=== PATIENT | male | born 1985 | race Hispanic/Latino ===

== ENCOUNTER 2024-09-28 04:43 | Emergency (ER) | payer BC ==
[~2024-09-28] VITALS: Ht 175.3 cm; Wt 88.5 kg
--- NOTE | 2024-09-28 04:57 | ERN ---
General Chief Complaint: Abdominal Pain Stated Complaint: C/O LLQ PAIN RADIATING TO BACK WITH NAUSEA Time Seen by MD: 04:46 Source: patient History of Present Illness Initial Comments Patient is a 39-year-old male coming in to be evaluated for lower abdominal pain. Patient states that he does have a history of diverticulitis in believes that this is a flare-up. Patient states that the pain began on Wednesday the pain is localized to the lower left quadrant area. No fever no chills no nausea no vomiting Allergies: Coded Allergies: No Known Allergies (Unverified Allergy, Unknown, 09/28/24) Past Medical History Past Medical History: Diverticulosis Past Surgical History: Other Surgical History Other: ANAL FISTULA ROS Dictation CONSTITUTIONAL: No chills, no fever, no weakness, no diaphoresis, no malaise. HEAD/FACE: No signs of trauma. EENT: No eye pain, no blurred vision, no tearing, no double vision, no ear pain, no ear discharge, no nose pain, no nasal congestion, no throat pain, no throat swelling, no mouth pain. RESPIRATORY: No cough, no orthopnea, no SOB, no stridor, no wheezing. CARDIOVASCULAR: No chest pain, no edema, no palpitations, no syncope. GASTROINTESTINAL/ABDOMINAL: abdominal pain, no constipation, no diarrhea, no nausea, no vomiting. GENITOURINARY: No abnormal discharge, no dysuria, no frequent urination, no hematuria. No complaints of pain in the genitals. MUSCULOSKELETAL: No back pain, no gout, no joint pain, no joint swelling, no muscle pain, no muscle stiffness, no neck pain. INTEGUMENTARY: No change in color, no change in hair/nails, no dryness, no lesion, no lumps, no rash. NEUROLOGICAL/PSYCH: No anxiety, not depressed, no emotional problem, no headache, no numbness, no pre-existing deficit, no history of seizures, no tremors, no weakness. HEMATOLOGIC/LYMPHATIC: Not anemic, no history of blood clots, no apparent bleeding, no bruising, glands not swollen. All Systems Negative, Except as Noted. Physical Exam Physical Exam Dictation VITAL SIGNS: Reviewed. GENERAL APPEARANCE: Alert, oriented x3, no acute distress, obese. HEAD AND FACE: Non-traumatic. EYES: PERRL, pink conjunctivas, eyelid no trauma, anterior chamber clear. EARS: Pinnas intact and no signs of trauma or erythema. Ear canals clear and no discharge. TMs no erythema. NOSE: No discharge, no bleeding. OROPHARYNX: Mouth normal, teeth no caries, tongue pink. Pharynx clear, no erythema. Tonsils no exudates, no abscesses noted. Mucous membrane moist. NECK: Supple, non-tender, no thyromegaly, no masses, no JVD, no bruits. BREAST: Deferred. CHEST: No tenderness, no crepitus, no paradoxical movement, no retractions. LUNGS: Clear, well-ventilated, symmetric, no rales, no wheezing, no rhonchi, no stridor, good breath sounds bilaterally. HEART: Regular rate, regular rhythm, no murmur, no gallops. VASCULAR: No peripheral edema. ABDOMEN: Soft, positive bowel sounds, nondistended, no guarding, left lower abdominal tenderness on palpation, no rebound, no masses no hepatomegaly, no splenomegaly, no Hearn's sign, no hernias. RECTAL: Deferred. GENITAL: Deferred. NEUROLOGICAL: Normal speech, gross motor function intact, gross sensory function intact. MUSCULOSKELETAL: Neck nontender, full range of motion, back nontender, full range of motion. EXTREMITIES: Nontender, full range of motion. SKIN: Color pink, dry, no turgor, no rash, no lacerations, no abrasions, no contusions. LYMPHATICS: Deferred. Results Laboratory and Microbiology Lab and Micro Result Laboratory Tests Test 09/28/24 05:50 White Blood Count 13.6 K/uL (4.8-10.8) H Red Blood Count 4.84 MIL/uL (4.50-6.20) Hemoglobin 14.2 g/dL (14.0-18.0) Hematocrit 41.9 % (42-54) L Mean Corpuscular Volume 86.6 fL (79-99) Mean Corpuscular Hemoglobin 29.3 pg (27.0-33.0) Mean Corpuscular Hemoglobin Concent 33.9 g/dL (32.0-36.0) Red Cell Distribution Width 12.4 % (11.0-15.5) Platelet Count 339 K/uL (130-400) Mean Platelet Volume 9.1 fL (7.5-10.5) Immature Granulocyte % (Auto) 0.4 % (0-1) Neutrophils (%) (Auto) 84.5 % (40.0-77.0) H Lymphocytes (%) (Auto) 6.9 % (21.0-51.0) L Monocytes (%) (Auto) 6.5 % (3.0-13.0) Eosinophils (%) (Auto) 1.5 % (0.0-8.0) Basophils (%) (Auto) 0.2 % (0.0-5.0) Neutrophils # (Auto) 11.5 K/uL (1.8-7.7) H Lymphocytes # (Auto) 0.9 K/uL (1.0-4.8) L Monocytes # (Auto) 0.9 K/uL (0.1-1.0) Eosinophils # (Auto) 0.21 K/uL (0.00-0.70) Basophils # (Auto) 0.03 K/uL (0.00-0.20) Absolute Immature Granulocyte (auto 0.05 K/uL (0-1) Nucleated Red Blood Cells 0.0 % (0.0-0.19) White Cell Morphology Comment See comments Sodium Level 137 mmol/L (136-145) Potassium Level 3.9 mmol/L (3.5-5.1) Chloride Level 101 mmol/L (101-111) Carbon Dioxide Level 30 mmol/L (21-32) Blood Urea Nitrogen 7 mg/dL (7-18) Creatinine 0.9 mg/dL (0.5-1.3) Glomerular Filtration Rate Calc 111 mL/min (>90) Random Glucose 96 mg/dL (70-105) Total Calcium 8.6 mg/dL (8.5-10.1) MDM MDM: Differential diagnosis: Rationale: Tests considered and ordered secondary to shared decision making include: Previous outside records reviewed: Old ER visits. Risk of complication and/or morbidity or mortality of patient management: None Medications-Per medication reconciliation Need for hospitalization: Patient does not meet criteria for hospitalization. Need for emergency major/minor surgery: No There are no social concerns with this patient. Prescription drug management Prescriptions will include symptomatic care Patient's prior external medical records from other ER visits were reviewed by me as indicated. Prior testing and results from previous visits were reviewed. Prior tests were taken into account with medical decision making and resource utilization, independent historian/historians were used to obtain complete medical history. I independently interpreted the test that were performed, results were reviewed by me and considered findings on radiology if ordered. Medical management and examination interpretation discussions were had by me with other qualified healthcare professionals as indicated for the patient's care. DR HERNANDEZ: I took over care at 0700 CC: Left lower abdominal pain Historian: Patient Comorbidities: History of diverticulitis Differential diagnosis: Diverticulitis, perforation, abscess, sepsis, other. Vital signs: Afebrile, stable in the ER. No tachycardia. Does not meet SIRS criteria. Labs: Leukocytosis 13.6 k with left shift. No bands. Chemistries unremarkable. CT scan of the abdomen and pelvis with contrast per my independent interpretation shows inflammation left lower quadrant consistent with diverticulitis. No signs of perforation or abscess or complication. Patient received IV Zosyn, two doses of IV morphine, and IV ondansetron in the ER. On re-evaluation of the patient reports he still has a little bit of discomfort but overall he appears well. I considered admission for this patient for IV antibiotics and further treatment and evaluation, but the patient prefers to go home at this time. He reports that he has had this before and it has responded well to oral antibiotics and pain control and diet modification. We agreed to discharge at this time with Augmentin and Percocet tabs for significant pain. He will return to the emergency department in 24-48 hours if his symptoms do not improve or if he has worsening condition. Patient is agreeable plan. ED Course Orders Procedure Category Date Status Time Cbc With Differential LAB 09/28/24 Complete 04:54 Urinalysis Profile LAB 09/28/24 In Process 04:54 Ct Abdomen/Pelvis W/O CT 09/28/24 Taken Contrast 04:54 Basic Metabolic Panel LAB 09/28/24 Complete 04:54 Morphine 2mg Syg PHA 09/28/24 Complete (Morphine 2mg Syg) 06:30 Ondansetron 4mg Inj PHA 09/28/24 Complete (Zofran 4mg Inj) 06:30 Zosyn 3.375gm+Ns 50ml PHA 09/28/24 In Process (Zosyn 3.375gm+Ns 07:00 Morphine 4mg Syg PHA 09/28/24 Complete (Morphine 4mg Syg) 08:30 Current Medications Medications (Trade) Dose Ordered Sig/Tai Route PRN Reason Start Time Stop Time Status Last Admin Dose Admin Morphine Sulfate (morPHINE 2MG SYG) 2 mg ONCE ONCE IVP 09/28/24 06:30 09/28/24 06:31 DC 09/28/24 06:08 Morphine Sulfate (morPHINE 4MG SYG) 4 mg ONCE ONCE IVP 09/28/24 08:30 09/28/24 08:32 DC Ondansetron HCl (zoFRAN 4MG INJ) 4 mg ONCE ONCE IVP 09/28/24 06:30 09/28/24 06:31 DC 09/28/24 06:08 Piperacillin Sod/ Tazobactam Sod (Zosyn 3.375gm+NS 50ml) 3.375 gm Q12H IV 09/28/24 07:00 10/08/24 06:59 09/28/24 07:14 Vital Signs Date Time Temp Pulse Resp B/P (MAP) Pulse Ox O2 Delivery O2 Flow Rate FiO2 09/28/24 05:55 98.4 71 18 105/64 98 Room Air* 0 21 09/28/24 04:46 99.7 73 20 107/62 100 Room Air DX & DISP Disposition: Discharge Departure Impression: Primary Impression: Diverticulitis large intestine Condition: Stable Scripts Oxycodone HCl/Acetaminophen (Percocet 5-325 mg Tablet) 5 Mg-325 Mg Tablet 1 TAB PO QID PRN for PAIN for 5 Days, #20 TAB 0 Refills Prov: VALENTINE HERNANDEZ DO 09/28/24 Amoxicillin/Potassium Clav (Amox Tr-K Clv 875-125 mg Tab) 875 Mg-125 Mg Tablet 1 TAB PO BID for 10 Days, #20 TAB 0 Refills Prov: VALENTINE HERNANDEZ DO 09/28/24 Additional Instructions: You have diverticulitis, we will which is inflammation/infection of the small pouches in the gibson of your colon. Your lab work shows a mild elevation of your white blood cell count which is consistent with inflammation or infection. Otherwise your CBC, BMP are stable. The CT scan of your abdomen and pelvis shows diverticulitis without any other abnormalities or complications. You received a dose of IV Zosyn and 6 mg of IV morphine in the ER. I have prescribed Augmentin, which is an antibiotic. Please take this twice per day for the next 10 days. Eat with food to reduce stomach upset. Finish the entire course even if you start feeling better. For pain control, I have prescribed Percocet tabs. You can take this up to every 6 hours as needed. I recommend avoiding NSAIDs such as ibuprofen or naproxen. Strict clear liquid diet (broth, clear Arthur, jello) during the initial stages of recovery. After that you can gradually transition to a low-fiber diet (rice, eggs, lean proteins, cut vegetables). Avoid high-fiber foods until your symptoms have improved. Be sure to drink plenty of liquids to stay hydrated. Rest at home and avoid strenuous activity until you feel better. So they resume normal activities as tolerated. Please return to the emergency department if you develop fever, continue with severe abdominal pain, develop any rectal bleeding, develop any persistent nausea or vomiting, or have any symptoms of dehydration. As we discussed, I recommend he follow up with the primary doctor within a few days. If you are unable to coordinate this you can return to the emergency department. I have also provided a referral to a vocational rehab consultant. I recommend a follow up within 7-10 days to ensure the infection is resolving and to discuss long- term management. Referrals: REBECCA RUSSO MD, ISABEL MD Sep 28, 2024 04:57 VALENTINE HERNANDEZ DO Sep 28, 2024 08:49
[2024-09-28] MEDS: ondanSETRON 4MG INJ IVP ONE (06:08)
[2024-09-28] MEDS: morPHINE 2 MG SYG IVP ONE (06:08)
[2024-09-28 06:10] LABS: BASOPHILS # (AUTO) 0.03 K/uL (0.00-0.20); BASOPHILS % (AUTO) 0.2 % (0.0-5.0); EOSINOPHILS # (AUTO) 0.21 K/uL (0.00-0.70); EOSINOPHILS % (AUTO) 1.5 % (0.0-8.0); HEMATOCRIT 41.9 % (42-54); IMMATURE GRANULOCYTE ABSOLUTE 0.05 K/uL (0-1); LYMPHOCYTES # (AUTO) 0.9 K/uL (1.0-4.8); LYMPHOCYTES % (AUTO) 6.9 % (21.0-51.0); MEAN CORPUSCULAR HEMOGLOBIN 29.3 pg (27.0-33.0); MEAN CORPUSCULAR HGB CONC 33.9 g/dL (32.0-36.0); MEAN CORPUSCULAR VOLUME 86.6 fL (79-99); MONOCYTES # (AUTO) 0.9 K/uL (0.1-1.0); MONOCYTES % (AUTO) 6.5 % (3.0-13.0); NEUTROPHILS # (AUTO) 11.5 K/uL (1.8-7.7); NEUTROPHILS % (AUTO) 84.5 % (40.0-77.0); PLATELET COUNT (AUTO) 339 K/uL (130-400); RED BLOOD CELL COUNT(AUTO) 4.84 MIL/uL (4.50-6.20); RED CELL DISTRIBUTION WIDTH 12.4 % (11.0-15.5); WHITE BLOOD COUNT (AUTO) 13.6 K/uL (4.8-10.8)
[2024-09-28 06:19] LABS: CREATININE 0.9 mg/dL (0.5-1.3); POTASSIUM 3.9 mmol/L (3.5-5.1)
[2024-09-28] MEDS: ZOSYN 3.375GM +NS 50ML IV SCH (07:14)
[2024-09-28 08:33] LABS: APPEARANCE,URINE CLEAR (CLEAR); BILIRUBIN,URINE NEGATIVE (NEGATIVE); COLOR,URINE LIGHT-YELLOW (YELLOW); GLUCOSE, URINE (UA) NEGATIVE (NEGATIVE); KETONES,URINE 40 mg/dL (NEGATIVE); LEUKOCYTE ESTERASE ,URINE NEGATIVE Leu/uL (NEGATIVE); NITRATE,URINE NEGATIVE (NEGATIVE); OCCULT BLOOD,URINE NEGATIVE (NEGATIVE); PH,URINE 7.5 (5.0-8.0); PROTEIN,URINE NEGATIVE (NEGATIVE); UROBILINOGEN,URINE 0.2 mg/dL (0.2-1.0)
[2024-09-28] MEDS ORDERED: AMOX1TAB16 PO (08:41)
[2024-09-28] MEDS ORDERED: OXYC-38 PO (08:41)
[2024-09-28 08:48] LABS: ADD UA MICROSCOPIC YES
[2024-09-28] MEDS: morPHINE 4 MG SYG IVP ONE (08:49)
[2024-09-28 08:59] VITALS: BP 145/58; PULSE 98; RESP 18; TEMP 98.1; O2SAT 98
[2024-09-28 09:03] LABS: MUCUS,URINE RARE LPF (None Seen); WBC,URINE 0-1 /HPF (0-1)
--- NOTE | 2024-09-28 09:38 | HMCIMG ---
CT ABDOMEN WITHOUT CONTRAST. CT PELVIS WITHOUT CONTRAST. INDICATION: Right flank pain TECHNIQUE: Routine transaxial imaging using 5 mm slice thickness through the abdomen and pelvis without the administration of IV contrast. Thin slice reconstructions are also provided. Coronal and sagittal reformatted images acquired for interpretation. CT was performed with one or more of the following dose reduction techniques: Automated exposure control, adjustment of the mA and/or kV according to patient size, or use of iterative reconstruction technique. COMPARISON: None FINDINGS: ON NONCONTRAST IMAGING: ABDOMEN: Heart size is normal. Visible lung bases are clear. No abnormal renal calcifications, hydronephrosis, perinephric inflammation, or proximal hydroureter detected. The liver is normal in size and smooth in contour without biliary duct dilation. The spleen is normal in size and attenuation. The gallbladder appears normal. The pancreas appears normal without pancreatic duct dilation. The adrenal glands appear normal. No significant abdominal, retrocrural or retroperitoneal adenopathy noted. No evidence for intra-abdominal free air or organized fluid collection. No aortic aneurysmal dilation identified. PELVIS: No abnormal calcifications within the urinary bladder or distal ureters. No evidence for free air or organized pelvic fluid collection. No significant pelvic adenopathy detected. Several diverticula along the sigmoid colon. Moderate inflammatory fat stranding along the mesenteric wall of the proximal sigmoid colon Terminal ileum appears unremarkable. The appendix appears normal. Prostate gland transverse dimension measures 5.3 cm. Visible osseous structures are intact. IMPRESSION: Acute proximal sigmoid diverticulitis without perforation or abscess. Slightly enlarged prostate gland.
== END 2024-09-28 09:00 | disposition home or self-care (01) ==
LOC: EDH 04:43
DX: K57.32 Diverticulitis of large intestine without perforation or abscess without bleeding (principal); Z98.890 Other specified postprocedural states
CPT/HCPCS: 99284; 74176; 96365; 96375; 80048; 85025; 81001; 36415; 96376; J2270 ×2; J2405; J2543

== ENCOUNTER 2024-10-12 18:25 | Inpatient (IN) | payer BC ==
[~2024-10-12] VITALS: Ht 172.7 cm; Wt 85.2 kg
[~2024-10-12 18:25] MED LIST: AMOX1TAB16 PO; OXYC-38 PO
--- NOTE | 2024-10-12 18:44 | ERN ---
ED Note History of Present Illness Stated Complaint: LLQ PAIN Chief Complaint: Abdominal Pain Time Seen by MD: 18:29 Dictation: PATIENT IS A 39-YEAR-OLD MALE COMING IN TODAY WITH MODERATE TO SEVERE LEFT LOWER QUADRANT PAIN TENDERNESS ONSET TWO DAYS PRIOR TO ARRIVAL. NO FEVER NO CHILLS. PATIENT WAS DIAGNOSED AT [facility] WITH DIVERTICULITIS, SENT HOME WITH OXYCODONE AND AUGMENTIN STATES HE TOOK THE ANTIBIOTIC UNTIL GONE. HE STATES HIS DAUGHTER GOT A STOMACH BUG AND THEN HE CAUGHT IT AND THEN THE PAIN STARTED GETTING PROGRESSIVELY WORSE TO HIS LEFT LOWER QUADRANT. Allergies: Coded Allergies: No Known Allergies (Unverified Allergy, Unknown, 09/28/24) Home Meds Active Scripts Oxycodone HCl/Acetaminophen (Percocet 5-325 mg Tablet) 5 Mg-325 Mg Tablet, 1 TAB PO QID PRN for PAIN for 5 Days, #20 TAB 0 Refills Prov:VALENTINE HERNANDEZ DO 09/28/24 Amoxicillin/Potassium Clav (Amox Tr-K Clv 875-125 mg Tab) 875 Mg-125 Mg Tablet, 1 TAB PO BID for 10 Days, #20 TAB 0 Refills Prov:VALENTINE HERNANDEZ DO 09/28/24 Past Medical History Past Medical History: Diverticulitis Surgical History: Other Surgical History Other: ANAL FISTULA PSYCH History: no pertinent psych hx RN Note Reviewed/Agreed w/PFSH: Yes Review of System Dictation CONSTITUTIONAL: NEGATIVE EXCEPT FOR HPI HEAD/FACE: NEGATIVE EXCEPT FOR HPI EENT: NEGATIVE EXCEPT FOR HPI RESPIRATORY: NEGATIVE EXCEPT FOR HPI GASTROINTESTINAL/ABDOMINAL: NEGATIVE EXCEPT FOR HPI LEFT LOWER QUADRANT PAIN GENITOURINARY: NEGATIVE EXCEPT FOR HPI MUSCULOSKELETAL: NEGATIVE EXCEPT FOR HPI INTEGUMENTARY: NEGATIVE EXCEPT FOR HPI NEUROLOGICAL/PSYCH: NEGATIVE EXCEPT FOR HPI HEMATOLOGIC/LYMPHATIC: NEGATIVE EXCEPT FOR HPI ALL SYSTEMS NEGATIVE, EXCEPT NOTED ABOVE. 13 POINT REVIEW OF SYSTEMS ASSESSED AND ALL NEGATIVE EXCEPT FOR ABOVE. Initial Vital Sign VS Vital Signs Date Time Temp Pulse Resp B/P (MAP) Pulse Ox O2 Delivery O2 Flow Rate FiO2 10/12/24 18:27 99.0 79 16 104/66 96 Room Air 10/12/24 18:46 0 21 Physical Exam Dictation VITAL SIGNS REVIEWED GENERAL APPEARANCE: ALERT, ORIENTED X 3, MODERATE ACUTE DISTRESS, WELL DEVELOPED, NOURISHED. HEAD AND FACE: NON-TRAUMATIC. EYES: PERRL, PINK CONJUNCTIVAS, EYELID NO TRAUMA, ANTERIOR CHAMBER WITH ARCUS SENILIS. EARS: PINNAS INTACT AND NO SIGNS OF TRAUMA OR ERYTHEMA EAR CANALS CLEAR AND NO DISCHARGE TM NO ERYTHEMA NOSE: NO DISCHARGE, NO BLEEDING. OROPHARYNX: MOUTH NORMAL, TONGUE PINK, PHARYNX CLEAR,NO ERYTHEMA, TONSILS NO EXUDATES, NO ABSCESSES NOTED, MUCOUS MEMBRANE MOIST NECK: SUPPLE, NON-TENDER, NO THYROMEGALY, NO MASSES, NO JVD, NO BRUITS BREAST:DEFERRED CHEST:NO TENDERNESS, NO CREPITUS, NO PARADOXICAL MOVEMENT, NO RETRACTIONS LUNGS:CLEAR, WELL-VENTILATED, SYMMETRIC, NO RALES, NO WHEEZING, NO RHONCHI, NO STRIDOR, GOOD BREATH SOUNDS BILATERALLY HEART: REGULAR RATE, REGULAR RHYTHM, NO MURMUR, NO GALLOPS VASCULAR: NO PERIPHERAL EDEMA, ABDOMEN: SOFT, POSITIVE BOWEL SOUNDS, NONDISTENDED, NO GUARDING, LEFT LOWER QUADRANT PAIN TENDERNESS RECTAL: DEFERRED GENITAL: DEFERRED NEUROLOGICAL: NORMAL SPEECH, MOTOR FUNCTION INTACT, SENSORY FUNCTION INTACT MUSCULOSKELETAL: NECK NONTENDER, FULL RANGE OF MOTION, BACK NONTENDER, FULL RANGE OF MOTION, EXTREMITIES: NONTENDER, FULL RANGE OF MOTION SKIN: COLOR PINK, DRY, NO TURGOR, NO RASH, NO LACERATIONS, NO ABRASIONS, NO CONTUSIONS. LYMPHATIC: DEFERRED Results (Laboratory/Radiology) Laboratory/Radiology Laboratory Tests Test 10/12/24 18:40 10/12/24 19:00 White Blood Count 13.0 K/uL (4.8-10.8) H Red Blood Count 5.11 MIL/uL (4.50-6.20) Hemoglobin 14.6 g/dL (14.0-18.0) Hematocrit 43.9 % (42-54) Mean Corpuscular Volume 85.9 fL (79-99) Mean Corpuscular Hemoglobin 28.6 pg (27.0-33.0) Mean Corpuscular Hemoglobin Concent 33.3 g/dL (32.0-36.0) Red Cell Distribution Width 12.3 % (11.0-15.5) Platelet Count 455 K/uL (130-400) H Mean Platelet Volume 9.0 fL (7.5-10.5) Immature Granulocyte % (Auto) 0.6 % (0-1) Neutrophils (%) (Auto) 74.2 % (40.0-77.0) Lymphocytes (%) (Auto) 15.2 % (21.0-51.0) L Monocytes (%) (Auto) 7.6 % (3.0-13.0) Eosinophils (%) (Auto) 2.2 % (0.0-8.0) Basophils (%) (Auto) 0.2 % (0.0-5.0) Neutrophils # (Auto) 9.7 K/uL (1.8-7.7) H Lymphocytes # (Auto) 2.0 K/uL (1.0-4.8) Monocytes # (Auto) 1.0 K/uL (0.1-1.0) Eosinophils # (Auto) 0.29 K/uL (0.00-0.70) Basophils # (Auto) 0.03 K/uL (0.00-0.20) Absolute Immature Granulocyte (auto 0.08 K/uL (0-1) Nucleated Red Blood Cells 0.0 % (0.0-0.19) Sodium Level 142 mmol/L (136-145) Potassium Level 4.1 mmol/L (3.5-5.1) Chloride Level 103 mmol/L (101-111) Carbon Dioxide Level 35 mmol/L (21-32) H Blood Urea Nitrogen 12 mg/dL (7-18) Creatinine 0.9 mg/dL (0.5-1.3) Glomerular Filtration Rate Calc 111 mL/min (>90) Random Glucose 85 mg/dL (70-105) Total Calcium 9.2 mg/dL (8.5-10.1) Lipase 49 U/L (16-77) Urine Color YELLOW (YELLOW) Urine Appearance CLEAR (CLEAR) Urine pH 5.5 (5.0-8.0) Urine Specific [place] 1.022 (1.001-1.031) Urine Protein 10 mg/dL (NEGATIVE) H Urine Glucose (UA) NEGATIVE mg/dL (NEGATIVE) Urine Ketones 5 mg/dL (NEGATIVE) H Urine Occult Blood NEGATIVE (NEGATIVE) Urine Nitrate NEGATIVE (NEGATIVE) Urine Bilirubin NEGATIVE mg/dL (NEGATIVE) Urine Urobilinogen 0.2 mg/dL (0.2-1.0) Urine Leukocyte Esterase NEGATIVE Sarah/uL Urine RBC 0-1 /HPF (0-1) Urine WBC 0-1 /HPF (0-1) Urine Squamous Epithelial Cells RARE /HPF (0-2) Urine Bacteria None /HPF (None Seen) REASON: LEFT LOWER QUADRANT PAIN HISTORY OF DIVERTICULITIS ORDERING PHYSICIAN: VIOLET NAIDU [employer] PROCEDURE: ABD PEL W - CT ABDOMEN/PELVIS W/CONTRAST CT ABDOMEN/PELVIS W/CONTRAST HISTORY: Left lower abdominal pain COMPARISON: 09/28/2024 TECHNIQUE: Multiple sequential axial images of the abdomen and pelvis were obtained from the dome of the diaphragm through symphysis pubis. Patient was given 75 cc of Omnipaque through intravenous route. Oral contrast was not given. FINDINGS: No pleural effusion is seen bilaterally. There is no evidence of parenchymal disease or pulmonary nodule of the visualized lower lungs. Degenerative changes of the thoracolumbar spine are present. The heart is not enlarged. There is gastric distention. Mild small bowel dilatation is seen. There is sigmoid colon wall thickening with adjacent fat stranding suggestive acute sigmoid diverticulitis. No focal abscess is seen. The liver, spleen, adrenal glands and pancreas are unremarkable. There is no evidence of hydronephrosis bilaterally. No evidence of renal stone is seen. There is diverticulosis. Fecal material is seen in the colon. There are normal size retroperitoneal and mesenteric lymph nodes. No ascites is seen. No CT evidence of acute appendicitis is seen. Pelvic sidewalls are symmetric bilaterally. Bladder is poorly distended. IMPRESSION: 1. Findings suggestive of acute sigmoid diverticulitis. No focal abscess is seen. Labs Reviewed?: Yes ED Course ED Course Orders Procedure Category Date Status Time Cbc With Differential LAB 10/12/24 Complete 18:30 Urinalysis Profile LAB 10/12/24 Complete 18:30 Ct Abdomen/Pelvis CT 10/12/24 Resulted W/Contrast 18:30 0.9%Nacl 1000ml (Ns PHA 10/12/24 Complete 1000ml) 18:30 Morphine 4mg Syg PHA 10/12/24 Complete (Morphine 4mg Syg) 18:30 Ondansetron 4mg Inj PHA 10/12/24 Complete (Zofran 4mg Inj) 18:30 Lipase LAB 10/12/24 Complete 18:30 Basic Metabolic Panel LAB 10/12/24 Complete 18:30 Zosyn 3.375gm+Ns 50ml PHA 10/12/24 In Process (Zosyn 3.375gm+Ns 18:30 Iohexol (Omnipaque) PHA 10/12/24 Complete 19:18 Current Medications Medications (Trade) Dose Ordered Sig/Tai Route PRN Reason Start Time Stop Time Status Last Admin Dose Admin Iohexol (Omnipaque) 75 ml STK-MED ONCE IV 10/12/24 19:18 10/12/24 19:24 DC Morphine Sulfate (morPHINE 4MG SYG) 4 mg ONCE ONCE IVP 10/12/24 18:30 10/12/24 18:32 DC 10/12/24 18:52 Ondansetron HCl (zoFRAN 4MG INJ) 4 mg ONCE ONCE IVP 10/12/24 18:30 10/12/24 18:32 DC 10/12/24 18:52 Piperacillin Sod/ Tazobactam Sod (Zosyn 3.375gm+NS 50ml) 3.375 gm ONCE IVPB 10/12/24 18:30 10/22/24 18:29 10/12/24 18:52 Sodium Chloride 1,000 ml @ 0 mls/hr ONCE ONCE IV 10/12/24 18:30 10/12/24 18:32 DC 10/12/24 18:52 Vital Signs Date Time Temp Pulse Resp B/P (MAP) Pulse Ox O2 Delivery O2 Flow Rate FiO2 10/12/24 19:32 75 18 112/40 98 Room Air* 0 21 10/12/24 18:46 98.2 74 18 103/58 96 Room Air* 0 21 10/12/24 18:27 99.0 79 16 104/66 96 Room Air 2005/PATIENT HAS A ACUTE DIVERTICULITIS WITHOUT PERFORATION OR ABSCESS. SECOND DIAGNOSIS IS A FAILED OUT TREATMENT. I STRONGLY SUGGESTED HE BE ADMITTED TO THE HOSPITAL FOR NPO FLUID MANAGEMENT AND PAIN MANAGEMENT WITH ZOSYN AND HE AGREED TO STAY. 2030 SPOKE WITH SHANNAN [facility] HOSPITALIST REVIEWED CT LABS INTERVENTIONS FOR INFECTION TO INCLUDE ZOSYN AND FLUIDS AND HE AGREED TO ADMIT PATIENT. Medical Decision Making MDM MDM: DIFFERENTIAL DIAGNOSIS: ACUTE DIVERTICULITIS/PERFORATION/ABSCESS/HERNIA/UTI/SEPSIS/DEHYDRATAND RADIOLOGY PREVIOUS OUTSIDE RECORDS REVIEWED: OLD ER VISITS. REVIEWED RISK OF COMPLICATION AND/OR MORBIDITY OR MORTALITY OF PATIENT MANAGEMENT: [id number] MEDICATIONS-PER MEDICATION RECONCILIATION REVIEWED NEED FOR HOSPITALIZATION: PATIENT DOES MEET CRITERIA FOR HOSPITALIZATION. PATIENT WILL BE NEED TO MAINTAIN NPO, ZOSYN AND PAIN MANAGEMENT. NEED FOR EMERGENCY MAJOR/MINOR SURGERY: NO THERE ARE NO SOCIAL CONCERNS WITH THIS PATIENT. PRESCRIPTION DRUG MANAGEMENT PRESCRIPTIONS WILL INCLUDE SYMPTOMATIC CARE PATIENT'S PRIOR EXTERNAL MEDICAL RECORDS FROM OTHER ER VISITS WERE REVIEWED BY ME INDICATED. PRIOR TESTING AND RESULTS FROM PREVIOUS VISITS WERE REVIEWED. PRIOR TESTS WERE TAKEN INTO ACCOUNT WITH MEDICAL DECISION MAKING AND RESOURCE UTILIZATION, INDEPENDENT HISTORIAN/HISTORIANS WERE USED TO OBTAIN COMPLETE MEDICAL HISTORY. I INDEPENDENTLY INTERPRETED THE TEST THAT WERE PERFORMED, RESULTS WERE REVIEWED BY ME AND CONSIDERED FINDINGS ON RADIOLOGY IF ORDERED. MEDICAL MANAGEMENT AND EXAMINATION INTERPRETATION DISCUSSIONS WERE HAD BY ME WITH OTHER QUALIFIED HEALTHCARE PROFESSIONALS INDICATED FOR THE PATIENT'S CARE. DX & DISP Disposition: Inpatient Decision to Admit Time: 20:06 Departure Impression: Primary Impression: Diverticulitis large intestine Additional Impression: Failure of outpatient treatment Condition: Stable Referrals: Gill REYES MD (PCP) Time of Disposition: 20:06 I have reviewed the case, and I agree with, Diagnosis and Plan VIOLET NAIDU NP Oct 12, 2024 18:44
[2024-10-12 18:48] LABS: BASOPHILS # (AUTO) 0.03 K/uL (0.00-0.20); BASOPHILS % (AUTO) 0.2 % (0.0-5.0); EOSINOPHILS # (AUTO) 0.29 K/uL (0.00-0.70); EOSINOPHILS % (AUTO) 2.2 % (0.0-8.0); HEMATOCRIT 43.9 % (42-54); IMMATURE GRANULOCYTE ABSOLUTE 0.08 K/uL (0-1); LYMPHOCYTES % (AUTO) 15.2 % (21.0-51.0); MEAN CORPUSCULAR HEMOGLOBIN 28.6 pg (27.0-33.0); MEAN CORPUSCULAR HGB CONC 33.3 g/dL (32.0-36.0); MEAN CORPUSCULAR VOLUME 85.9 fL (79-99); MONOCYTES % (AUTO) 7.6 % (3.0-13.0); NEUTROPHILS # (AUTO) 9.7 K/uL (1.8-7.7); NEUTROPHILS % (AUTO) 74.2 % (40.0-77.0); PLATELET COUNT (AUTO) 455 K/uL (130-400); RED BLOOD CELL COUNT(AUTO) 5.11 MIL/uL (4.50-6.20); RED CELL DISTRIBUTION WIDTH 12.3 % (11.0-15.5)
[2024-10-12] MEDS: morPHINE 4 MG SYG IVP ONE (18:52)
[2024-10-12] MEDS: ondanSETRON 4MG INJ IVP ONE (18:52)
[2024-10-12] MEDS: ZOSYN 3.375GM +NS 50ML IVPB SCH (18:52)
[2024-10-12] MEDS: 0.9%NACL 1000ML 1,000 ML IV ONE (18:52)
[2024-10-12 18:53] LABS: CREATININE 0.9 mg/dL (0.5-1.3); POTASSIUM 4.1 mmol/L (3.5-5.1)
[2024-10-12 19:07] LABS: APPEARANCE,URINE CLEAR (CLEAR); BILIRUBIN,URINE NEGATIVE (NEGATIVE); COLOR,URINE YELLOW (YELLOW); GLUCOSE, URINE (UA) NEGATIVE (NEGATIVE); KETONES,URINE 5 mg/dL (NEGATIVE); LEUKOCYTE ESTERASE ,URINE NEGATIVE Leu/uL (NEGATIVE); NITRATE,URINE NEGATIVE (NEGATIVE); OCCULT BLOOD,URINE NEGATIVE (NEGATIVE); PH,URINE 5.5 (5.0-8.0); PROTEIN,URINE 10 mg/dL (NEGATIVE); UROBILINOGEN,URINE 0.2 mg/dL (0.2-1.0)
[2024-10-12 19:12] LABS: ADD UA MICROSCOPIC YES
[2024-10-12 19:13] LABS: MUCUS,URINE RARE LPF (None Seen); RBC,URINE 0-1 /HPF (0-1); SQUAMOUS EPITHELIAL CELL,UR RARE /HPF (0-2); WBC,URINE 0-1 /HPF (0-1)
[2024-10-12] MEDS ORDERED: IOHEXOL-350 75 ML VIAL IV ONE (19:18)
--- NOTE | 2024-10-12 19:56 | HMCIMG ---
CT ABDOMEN/PELVIS W/CONTRAST HISTORY: Left lower abdominal pain COMPARISON: 09/28/2024 TECHNIQUE: Multiple sequential axial images of the abdomen and pelvis were obtained from the dome of the diaphragm through symphysis pubis. Patient was given 75 cc of Omnipaque through intravenous route. Oral contrast was not given. FINDINGS: No pleural effusion is seen bilaterally. There is no evidence of parenchymal disease or pulmonary nodule of the visualized lower lungs. Degenerative changes of the thoracolumbar spine are present. The heart is not enlarged. There is gastric distention. Mild small bowel dilatation is seen. There is sigmoid colon wall thickening with adjacent fat stranding suggestive acute sigmoid diverticulitis. No focal abscess is seen. The liver, spleen, adrenal glands and pancreas are unremarkable. There is no evidence of hydronephrosis bilaterally. No evidence of renal stone is seen. There is diverticulosis. Fecal material is seen in the colon. There are normal size retroperitoneal and mesenteric lymph nodes. No ascites is seen. No CT evidence of acute appendicitis is seen. Pelvic sidewalls are symmetric bilaterally. Bladder is poorly distended. IMPRESSION: 1. Findings suggestive of acute sigmoid diverticulitis. No focal abscess is seen. CT was performed with one or more following dose reduction techniques: automated exposure control, adjustment of the mA and kv according to patient's size, or use of a iterative reconstruction technique.
--- NOTE | 2024-10-12 20:40 | HP ---
History of Present Illness Reason for Visit: abdominal pain History of Present Illness Mr. Vásquez is a 39-year-old male that was seen and examined today on 10/12/2024. Patient is a good historian and personal health. Patient states that he came to the emergency department with a chief complaint of abdominal pain. Onset was 09/24/2024. Location is to left lower quadrant. Duration is on and off. Character is described as stabbing pain. Patient rep orts this is his 5th flare-up of diverticulosis in as many years. Symptoms are aggravated with standing up from the sitting position as well as eating. There was no alleviating factors. Today in the emergency department WBCs 13.0, chemistry unremarkable, urinalysis unremarkable, CT of abdomen and pelvis shows findings suggestive of acute sigmoid diverticulitis. No focal abscesses seen. Emergency room physician recommended patient be admitted with a diagnosis of diverticulitis. Past Medical History ADDITIONAL PAST MEDICAL HISTORY: [Denies] SOCIAL HISTORY: [Patient smokes one cigar every three months. Patient drinks whiskey 2 times a week usually two cocktails. Patient denies drug use. Patient is currently residing with his mother Leonarda Vásquez. Patient is typically independent of all his ADLs. 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 Patient has good access to health care through his insurance. Patient denies difficulty pain is bills. SURGICAL HISTORY: [Anal fistula repair] Review of Systems General: No Fever, No Chills, No Night Sweats, No Fatigue, No Malaise, No Appetite, No Other HEENT: No Head Aches, No Visual Changes, No Eye Pain, No Ear Pain, No Dysphasia, No Sinus Congestion, No Post Nasal Drip, No Sore Throat, No Other Pulmonary: No Dyspnea, No Cough, No Pleuritic Chest Pain, No Other Cardiovascular: No: Chest Pain, Palpitations, Orthopnea, Paroxysmal Noc. Dyspnea, Edema, Lt Headedness, Other Gastrointestinal: Abdominal Pain; No: Nausea, Vomiting, Diarrhea, Constipation, Melena, Hematochezia, Other Genitourinary: No Dysuria, No Frequency, No Incontinence, No Hematuria, No Retention, No Other Musculoskeletal: No: other, neck pain, shoulder pain, arm pain, back pain, hand pain, leg pain, foot pain Skin: No Urticaria, No Rash, No Other Neurological: No: Weakness, Numbness, Incoordination, Change in speech, Confu tyree, Seizures, Other Allergies: Coded Allergies: No Known Allergies (Unverified Allergy, Unknown, 09/28/24) Scheduled Amoxicillin/Potassium Clav (Amox Tr-K Clv 875-125 mg Tab), 1 TAB PO BID Scheduled PRN Oxycodone HCl/Acetaminophen (Percocet 5-325 mg Tablet), 1 TAB PO QID PRN for PAIN Exam Vital Signs Vital Signs Date Time Temp Pulse Resp B/P (MAP) Pulse Ox O2 Delivery O2 Flow Rate FiO2 10/12/24 19:32 75 18 112/40 98 Room Air* 0 21 10/12/24 18:46 98.2 General Appearance: Alert, Oriented X3, Cooperative, No acute distress HEENT: Atraumatic, EOMI, Mucous membr. moist/pink Respiratory: Clear to auscultation, Normal air movement, NL respiratory effort Cardiovascular: Regular rate, Regular rhythm, Normal S1, Normal S2 Abdominal: Normal bowel sounds, Soft, Other (Positive left lower quadrant tenderness on palpation) Extremities: No edema Skin: No significant lesion Neuro: Normal speech, Strength at 5/5 X4 ext, Sensation intact, Cranial nerves 3-12 NL Psych/Mental Status: Mental status NL, Mood NL, Thoughts/Content NL Assessment/Plan ASSESSMENT: [ Acute sigmoid diverticulitis, POA Leukocytosis, POA] PLAN: [ Admit patient to medical-surgical floor as inpatient status. Empiric antibiotic therapy with Zosyn Keep patient NPO Lactated Ringer's at 100 mL/HR As needed analgesia with morphine Consult General surgery Service, Dr. Delcid for evaluation and recommendations GI prophylaxis, famotidine 20 mg IV once daily DVT prophylaxis, Lovenox 40 mg subcutaneously once daily. ADVANCED CARE PLANNING 1. Which of the following were discussed? Hospice Care - Yes Therapeutic options - Yes Advance Directives - Yes-patient states he does not have any advance directives in place at this time, however his mother can make decisions for him if he becomes unable. Other discussions - patient wishes to remain a full code at this time 2. Discussed with who? Patient 3. Voluntary nature of this service was explained to the patient? Yes 4. Amount of time spent - __ 16 minutes 5. Reviewed by Physician? (if this service was performed by NPP) Yes This document was generated in part using voice recognition software, occasional wrong word or sound alike substitutions may have occurred due to the inherent limitations of voice recognition software. Read the chart carefully and recognize using context, where the substitutions have occurred. Although every effort was made to edit the content, lubrication servicer and typing errors may occur ATTESTATION BY PHYSICIAN I have seen and examined the patient. I reviewed the documentation, medical decision making, and treatment plan as noted by the mid-level provider above. I agree with the findings and plan of care. SHANNAN HERNÁNDEZ [facility] Oct 12, 2024 20:40
[2024-10-12] MEDS ORDERED: ondanSETRON 4MG INJ IV PRN (21:00)
[2024-10-12] MEDS ORDERED: hydrALAZine 20MG/ML VIAL IV PRN (21:00)
[2024-10-12] MEDS ORDERED: acetaMINOPHEN 650 MG SUPPOSITORY RC PRN (21:00)
[2024-10-12] MEDS: LACTATED RINGERS 1000ML 1,000 ML IV SCH (21:13)
[2024-10-12] MEDS: morPHINE 4 MG SYG IV PRN (23:12)
[2024-10-13] VITALS (7 sets, daily range): BP systolic 103–118; BP diastolic 53–63; PULSE 66–86; RESP 16–20; TEMP 98.2–98.8; O2SAT 95–96
[2024-10-13] MEDS: ZOSYN 3.375GM +NS 50ML IV SCH (02:43)
[2024-10-13 06:28] LABS: BASOPHILS # (AUTO) 0.03 K/uL (0.00-0.20); BASOPHILS % (AUTO) 0.2 % (0.0-5.0); EOSINOPHILS # (AUTO) 0.25 K/uL (0.00-0.70); EOSINOPHILS % (AUTO) 1.8 % (0.0-8.0); HEMATOCRIT 41.6 % (42-54); IMMATURE GRANULOCYTE ABSOLUTE 0.04 K/uL (0-1); LYMPHOCYTES # (AUTO) 1.4 K/uL (1.0-4.8); LYMPHOCYTES % (AUTO) 10.1 % (21.0-51.0); MEAN CORPUSCULAR HEMOGLOBIN 28.5 pg (27.0-33.0); MEAN CORPUSCULAR HGB CONC 32.7 g/dL (32.0-36.0); MEAN CORPUSCULAR VOLUME 87.2 fL (79-99); MONOCYTES # (AUTO) 0.9 K/uL (0.1-1.0); MONOCYTES % (AUTO) 6.5 % (3.0-13.0); NEUTROPHILS % (AUTO) 81.1 % (40.0-77.0); PLATELET COUNT (AUTO) 404 K/uL (130-400); RED BLOOD CELL COUNT(AUTO) 4.77 MIL/uL (4.50-6.20); RED CELL DISTRIBUTION WIDTH 12.5 % (11.0-15.5); WHITE BLOOD COUNT (AUTO) 13.5 K/uL (4.8-10.8)
[2024-10-13 06:51] LABS: INR 1.09 (0.85-1.15); PHOSPHORUS 3.5 mg/dL (2.5-4.9); POTASSIUM 4.1 mmol/L (3.5-5.1); PROTHROMBIN TIME 11.7 SEC (9.6-11.6)
[2024-10-13] MEDS: FAMOTIDINE 20MG VIAL IV SCH (08:00)
--- NOTE | 2024-10-13 10:35 | CONS ---
CONSULT NOTE: Consulting physician:Dr Xiao Consulting service: General surgery Reason for consultation: Diverticulitis History of present illness: This is a 39-year-old male with a known history of diverticulosis with multiple episodes of diverticulitis and has been consulted to surgery after presenting to the hospital with concerns of abdominal pain. Patient reports initial onset was on September 24 in the left lower quadrant. Patient reports waxing waning presentation. Patient reports multiple flare-ups over the last several years. Due to concerns patient presented to hospital for further evaluation. Initial white count elevated at 13. LFTs unremarkable. Patient underwent CT were concerns of acute sigmoid diverticulitis notice with no focal abscesses observed. Patient is seen in room resting on IV fluids and IV antibiotics. Patient's abdominal pain is significantly improved. Patient currently NPO. Patient otherwise hemodynamically stable. Patient is good historian Medical history: Known diverticulosis with multiple episodes of diverticulitis Surgical history: Anal fistula repair Review of systems: General: No Fever, No Chills, No Night Sweats, No Fatigue, No Malaise, No Appetite, No Other HEENT: No Head Aches, No Visual Changes, No Eye Pain, No Ear Pain, No Dysphasia, No Sinus Congestion, No Post Nasal Drip, No Sore Throat, No Other Pulmonary: No Dyspnea, No Cough, No Pleuritic Chest Pain, No Other Cardiovascular: No: Chest Pain, Palpitations, Orthopnea, Paroxysmal No Dyspnea, Edema, Lt Headedness, Other Gastrointestinal: No: Nausea, Vomiting, Diarrhea, Constipation, Melena, Hematochezia, Other Genitourinary: No Dysuria, No Frequency, No Incontinence, No Hematuria, No Retention, No Other Musculoskeletal: No: other, neck pain, shoulder pain, arm pain, back pain, hand pain, leg pain, foot pain Skin: No Urticaria, No Rash, No Other Neurological: No: Weakness, Numbness, Incoordination, Change in speech, Confusion, Seizures, Other Physical exam: General: Awake alert and oriented Heart: Regular rate and rhythm} Lungs: [Clear to auscultation no distress Abdomen: Improving left lower quadrant discomfort Assessment: This is a 39-year-old male with concerns of acute diverticulitis Plan: At this point in time patient to continue with conservative management Patient to continue with IV fluids and IV antibiotics Patient to remain NPO for the remainder of today Patient informed that recommendation will be for colonoscopy at six weeks with Dr. Delcid for potential evaluation and surgical intervention with history of recurrent episodes Dr. Delcid to be updated patient's status and surgical team to follow patient closely. Thank you FLOR MCCORMICK Jr. Oct 13, 2024 10:35
[2024-10-13] MEDS: ENOXAPARIN SODIUM 40 MG/0.4 ML SYRINGE SQ SCH (11:42)
--- NOTE | 2024-10-13 14:15 | NUR ---
DCP-Home Pt awake, alert, oriented lives with Mom and brother. PCP Riya Powers MD. Pt currently employed at [employer] and is independent able to perform ADLs. Pt anticipates discharge plan is for home. Addendum: 10/13/24 at 1422 by CECI ACOSTA RN Amended: Links added.
--- NOTE | 2024-10-13 15:45 | PN ---
[facility] PROGRESS NOTE Date of Service: Oct 13, 2024 Time of Service: 15:36 SUBJECTIVE: 10/13/2024 Patient is a 39-year-old male who is seen at bedside. Patient was previously admitted for acute sigmoid diverticulitis. Patient is currently afebrile normotensive saturating well on room air. Patient denies pain at the moments. He was seen by General surgery. General surgery states patient is currently not a candidate for surgery but continue NPO in antibiotic treatment. They will reassess tomorrow morning. Patient had colonoscopy March of 2024. Remarkable labs: White count stable hemoglobin hematocrit stable platelets unremarkable electrolytes unremarkable Patient will remain NPO and on Zosyn. He remains on GI prophylaxis famotidine 20 mg IV q.d. and DVT prophylaxis Lovenox 40 mg subQ q.d. will order IBD labs and follow up in the morning. REVIEW OF SYSTEMS CONSTITUTIONAL: Denies fevers, chills, or night sweats. No unintentional weight loss reported. NEUROLOGICAL: Denies headache, amaurosis fugax, motor weakness, sensory deficit, vertigo/spinning sensation, gait abnormalities, or tremors. ENT: No hearing loss, otalgia, otorrhea, rhinitis, rhinorrhea, hoarseness, or sore throat. CARDIOVASCULAR: Denies any exertional angina, dyspnea on exertion, orthopnea, paroxysmal nocturnal dyspnea, palpitations, life-threatening arrhythmias, claudication. PULMONARY: Denies any shortness of breath, cough, phlegm/sputum, hemoptysis, pleuritic chest pain. SLEEP: Denies morning headaches, daytime somnolence or napping. Denies difficulty falling asleep, staying asleep, waking from sleep. Denies knowledge of snoring. GASTROINTESTINAL: Denies any type of dysphagia to either liquids or solids. Denies nausea, vomiting, pyrosis, early satiety, abdominal pain, diarrhea, constipation, or changes in stool consistency or caliber. Denies coffee-ground emesis, hematemesis, hematochezia, or melanotic stools. GENITOURINARY: Denies frequency, urgency, nocturia, hematuria or incontinence (Storage/Irritative symptoms.) Low urinary stream, straining to void, urinary intermittency or hesitancy, splitting of the voiding stream, terminal dribbling. ENDOCRINOLOGIC: Denies polyuria, polydipsia, polyphagia or heat/cold intolerances. HEMATOLOGIC: Denies thrombophilia/previous clots, or coagulopathy/bleeding disorders. ONCOLOGIC: Denies personal history of malignancy. DERMATOLOGIC: Denies rashes or pruritus. PSYCHIATRIC: Denies any suicidal or homicidal ideation. Denies hallucinations. PHYSICAL EXAM GENERAL APPEARANCE: The patient is awake, alert, and oriented, in no acute cardiopulmonary distress. NEUROLOGICAL: Cranial nerves II-XII grossly intact. Motor is 5/5 in bilateral upper and lower extremities proximal to distal. No sensory deficits. HEENT: Face is symmetric. Pupils are equal and reactive. Extraocular movements are intact. NECK: Supple. No JVD. No thyromegaly. No submental, submandibular, pre- /postauricular, occipital or supraclavicular lymphadenopathy. CHEST: Normal chest expansion. No Telemetry. LUNGS: Absence of any rales, rhonchi or any wheezing. CARDIOVASCULAR: Regular. S1 and S2 normal. No appreciable rubs, murmurs or gallops. ABDOMEN: Soft, nontender, and nondistended. There is no rebound, voluntary guarding, or rigidity. : Deferred. No Sharpe. EXTREMITIES: Non-edematous and not cyanotic. No clubbing. Good capillary refill. SKIN: No skin breakdown. Vital Signs (last 8hr) Date Time Temp Pulse Resp B/P (MAP) Pulse Ox O2 Delivery O2 Flow Rate FiO2 10/13/24 12:00 98.8 72 16 109/55 96 Room Air 21 10/13/24 07:55 98.2 66 16 108/55 95 Room Air 21 LABS: Laboratory: Test 10/13/24 06:23 10/12/24 21:08 10/12/24 19:00 10/12/24 18:40 Range/Units White Blood Count 13.5 H 4.8-10.8 K/uL Red Blood Count 4.77 4.50-6.20 MIL/uL Hemoglobin 13.6 L 14.0-18.0 g/dL Hematocrit 41.6 L 42-54 % Mean Corpuscular Volume 87.2 79-99 fL Mean Corpuscular Hemoglobin 28.5 27.0-33.0 pg Mean Corpuscular Hemoglobin Concent 32.7 32.0-36.0 g/dL Red Cell Distribution Width 12.5 11.0-15.5 % Platelet Count 404 H 130-400 K/uL Mean Platelet Volume 8.8 7.5-10.5 fL Immature Granulocyte % (Auto) 0.3 0-1 % Neutrophils (%) (Auto) 81.1 H 40.0-77.0 % Lymphocytes (%) (Auto) 10.1 L 21.0-51.0 % Monocytes (%) (Auto) 6.5 3.0-13.0 % Eosinophils (%) (Auto) 1.8 0.0-8.0 % Basophils (%) (Auto) 0.2 0.0-5.0 % Neutrophils # (Auto) 11.0 H 1.8-7.7 K/uL Lymphocytes # (Auto) 1.4 1.0-4.8 K/uL Monocytes # (Auto) 0.9 0.1-1.0 K/uL Eosinophils # (Auto) 0.25 0.00-0.70 K/uL Basophils # (Auto) 0.03 0.00-0.20 K/uL Absolute Immature Granulocyte (auto 0.04 0-1 K/uL Nucleated Red Blood Cells 0.0 0.0-0.19 % Prothrombin Time 11.7 H 9.6-11.6 SEC Prothromb Time International Ratio 1.09 0.85-1.15 Activated Partial Thromboplast Time 30.0 26.3-35.5 SEC Sodium Level 142 136-145 mmol/L Potassium Level 4.1 3.5-5.1 mmol/L Chloride Level 106 101-111 mmol/L Carbon Dioxide Level 31 21-32 mmol/L Blood Urea Nitrogen 11 7-18 mg/dL Creatinine 1.0 0.5-1.3 mg/dL Glomerular Filtration Rate Calc 98 >90 mL/min Random Glucose 98 70-105 mg/dL Total Calcium 8.8 8.5-10.1 mg/dL Phosphorus Level 3.5 2.5-4.9 mg/dL Magnesium Level 2.00 1.80-2.40 mg/dL Lactic Acid Level 1.0 0.8-2.5 mmol/L Procalcitonin < 0.05 L 0.05-0.5 ng/mL Urine Color YELLOW YELLOW Urine Appearance CLEAR CLEAR Urine pH 5.5 5.0-8.0 Urine Specific [place]um 1.022 1.001-1.031 Urine Protein 10 H NEGATIVE mg/dL Urine Glucose (UA) NEGATIVE NEGATIVE mg/dL Urine Ketones 5 H NEGATIVE mg/dL Urine Occult Blood NEGATIVE NEGATIVE Urine Nitrate NEGATIVE NEGATIVE Urine Bilirubin NEGATIVE NEGATIVE mg/dL Urine Urobilinogen 0.2 0.2-1.0 mg/dL Urine Leukocyte Esterase NEGATIVE NEGATIVE Sarah/uL Urine RBC 0-1 0-1 /HPF Urine WBC 0-1 0-1 /HPF Urine Squamous Epithelial Cells RARE 0-2 /HPF Urine Bacteria None None Seen /HPF Lipase 49 16-77 U/L Current Medications Medications (Trade) Dose Ordered Sig/Tai Route PRN Reason Start Time Stop Time Status Last Admin Dose Admin Acetaminophen (TYLenol 650MG SUPPOSITORY) 650 mg Q6H PRN RC MILD PAIN (1-3) 10/12/24 21:00 11/11/24 20:59 Enoxaparin Sodium (Lovenox) 40 mg DAILY SQ 10/13/24 09:00 11/12/24 08:59 10/13/24 11:42 40 MG Famotidine (Pepcid 20mg Vial) 20 mg DAILY IV 10/13/24 09:00 11/12/24 08:59 10/13/24 08:00 20 MG Hydralazine HCl (APRESOLine 20MG INJ) 10 mg Q6H PRN IV For:SBP above 160;DBP above 90 10/12/24 21:00 11/11/24 20:59 Lactated Ringer's 1,000 ml @ 100 mls/hr Q10H IV 10/12/24 21:00 11/11/24 20:59 10/13/24 08:00 100 MLS/HR Morphine Sulfate (morPHINE 4MG SYG) 4 mg Q4H PRN IV SEVERE PAIN (7-10) 10/12/24 21:00 10/19/24 20:59 10/13/24 11:37 4 MG Ondansetron HCl (zoFRAN 4MG INJ) 4 mg Q6H PRN IV NAUSEA/VOMITING 10/12/24 21:00 11/11/24 20:59 Piperacillin Sod/ Tazobactam Sod (Zosyn 3.375gm+NS 50ml) 3.375 gm ONCE IVPB 10/12/24 18:30 10/12/24 20:44 DC 10/12/24 18:52 3.375 GM Piperacillin Sod/ Tazobactam Sod (Zosyn 3.375gm+NS 50ml) 3.375 gm Q8H IV 10/13/24 02:30 10/23/24 02:29 10/13/24 11:42 3.375 GM DIAGNOSTICS / RADIOLOGY: [place] [id number] [place] [address] IMAGING REPORT Signed PATIENT: THAO ROBISON MR#: [id number] : 1985 SEX: M AGE: 39 LOCATION: [facility] ORDER 31 STATUS: [facility] REPORT#: [id number] SERVICE 29 REASON: LEFT LOWER QUADRANT PAIN HISTORY OF DIVERTICULITIS ORDERING PHYSICIAN: VIOLET NAIDU NP PROCEDURE: ABD PEL W - CT ABDOMEN/PELVIS W/CONTRAST CT ABDOMEN/PELVIS W/CONTRAST HISTORY: Left lower abdominal pain COMPARISON: 09/28/2024 TECHNIQUE: Multiple sequential axial images of the abdomen and pelvis were obtained from the dome of the diaphragm through symphysis pubis. Patient was given 75 cc of Omnipaque through intravenous route. Oral contrast was not given. FINDINGS: No pleural effusion is seen bilaterally. There is no evidence of parenchymal disease or pulmonary nodule of the visualized lower lungs. Degenerative changes of the thoracolumbar spine are present. The heart is not enlarged. There is gastric distention. Mild small bowel dilatation is seen. There is sigmoid colon wall thickening with adjacent fat stranding suggestive acute sigmoid diverticulitis. No focal abscess is seen. The liver, spleen, adrenal glands and pancreas are unremarkable. There is no evidence of hydronephrosis bilaterally. No evidence of renal stone is seen. There is diverticulosis. Fecal material is seen in the colon. There are normal size retroperitoneal and mesenteric lymph nodes. No ascites is seen. No CT evidence of acute appendicitis is seen. Pelvic sidewalls are symmetric bilaterally. Bladder is poorly distended. IMPRESSION: 1. Findings suggestive of acute sigmoid diverticulitis. No focal abscess is seen. CT was performed with one or more following dose reduction techniques: automated exposure control, adjustment of the mA and kv according to patient's size, or use of a iterative reconstruction technique. DICTATED BY: SRI THOMPSON MD DATE: 10/12/241950 ELECTRONICALLY SIGNED BY: SRI THOMPSON MD DATE: 10/12/241955 ASSESSMENT: Acute sigmoid diverticulitis, POA Leukocytosis, POA PLAN: patient to medical-surgical floor as inpatient status. Empiric antibiotic therapy with Zosyn IBD labs check labs in the AM Keep patient NPO Lactated Ringer's at 100 mL/HR As needed analgesia with morphine Follow recommendations per General surgery Service GI prophylaxis, famotidine 20 mg IV once daily DVT prophylaxis, Lovenox 40 mg subcutaneously once daily. ATTESTATION BY PHYSICIAN I have seen and examined the patient. I reviewed the documentation, medical decision making, and treatment plan as noted by the resident provider above. I agree with the findings and plan of care. Larry Kaufman MD, GERARDO MD Oct 13, 2024 15:45
[2024-10-14] VITALS (7 sets, daily range): BP systolic 101–113; BP diastolic 52–64; PULSE 62–84; RESP 16–18; TEMP 97.3–98.5; O2SAT 97–98
[2024-10-14 05:09] LABS: BASOPHILS # (AUTO) 0.02 K/uL (0.00-0.20); BASOPHILS % (AUTO) 0.2 % (0.0-5.0); EOSINOPHILS # (AUTO) 0.24 K/uL (0.00-0.70); EOSINOPHILS % (AUTO) 2.1 % (0.0-8.0); IMMATURE GRANULOCYTE ABSOLUTE 0.07 K/uL (0-1); LYMPHOCYTES # (AUTO) 1.7 K/uL (1.0-4.8); MEAN CORPUSCULAR HEMOGLOBIN 28.7 pg (27.0-33.0); MEAN CORPUSCULAR HGB CONC 32.8 g/dL (32.0-36.0); MEAN CORPUSCULAR VOLUME 87.4 fL (79-99); MONOCYTES # (AUTO) 0.8 K/uL (0.1-1.0); MONOCYTES % (AUTO) 7.2 % (3.0-13.0); NEUTROPHILS # (AUTO) 8.6 K/uL (1.8-7.7); NEUTROPHILS % (AUTO) 74.9 % (40.0-77.0); PLATELET COUNT (AUTO) 398 K/uL (130-400); RED BLOOD CELL COUNT(AUTO) 4.46 MIL/uL (4.50-6.20); RED CELL DISTRIBUTION WIDTH 12.1 % (11.0-15.5); WHITE BLOOD COUNT (AUTO) 11.5 K/uL (4.8-10.8)
[2024-10-14 05:34] LABS: ALBUMIN 2.9 g/dL (3.5-5.0); BILIRUBIN,TOTAL 0.9 mg/dL (0.2-1.0); POTASSIUM 3.6 mmol/L (3.5-5.1); TOTAL PROTEIN, SERUM 6.3 g/dL (6.0-8.3)
[2024-10-14 06:16] LABS: ERYTHROCYTE SEDIMENTATION RATE 26 MM/HR (0-15)
--- NOTE | 2024-10-14 12:00 | PN ---
Interval history: This is a 39-year-old male in his room resting comfortably No abdominal pain reported Overnight patient with significant abdominal pain but had bowel movement in his had relief since Patient NPO Physical exam General: Awake alert and oriented Heart: Regular rate and rhythm} Lungs: Clear to auscultation no distress Abdomen: [Soft, nontender, nondistended Assessment : This is a 39-year-old male with acute diverticulitis Plan: Continue with antibiotics No surgical intervention planned Patient to be allowed clear liquids Surgical team to follow patient closely Vitals/Labs Vital Signs Date Time Temp Pulse Resp B/P (MAP) Pulse Ox O2 Delivery O2 Flow Rate FiO2 10/14/24 11:33 98.1 79 18 102/52 95 Room Air 10/14/24 08:10 0 21 Laboratory Tests 10/14/24 04:44 Medications Current Medications Sodium Chloride 1,000 ml @ 0 mls/hr ONCE ONCE IV Last administered on 10/12/24at 18:52; Start 10/12/24 at 18:30; Stop 10/12/24 at 18:32; Status DC Morphine Sulfate 4 mg ONCE ONCE IVP Last administered on 10/12/24at 18:52; Start 10/12/24 at 18:30; Stop 10/12/24 at 18:32; Status DC Ondansetron HCl 4 mg ONCE ONCE IVP Last administered on 10/12/24at 18:52; Start 10/12/24 at 18:30; Stop 10/12/24 at 18:32; Status DC Piperacillin Sod/ Tazobactam Sod 3.375 gm ONCE IVPB Last administered on 10/12/24at 18:52; Start 10/12/24 at 18:30; Stop 10/12/24 at 20:44; Status DC Iohexol 75 ml STK-MED ONCE IV; Start 10/12/24 at 19:18; Stop 10/12/24 at 19:24; Status DC Lactated Ringer's 1,000 ml @ 100 mls/hr Q10H IV Last administered on 10/14/24at 01:59; Start 10/12/24 at 21:00; Stop 11/11/24 at 20:59 Piperacillin Sod/ Tazobactam Sod 3.375 gm Q8H IV Last administered on 10/14/24at 10:39; Start 10/13/24 at 02:30; Stop 10/23/24 at 02:29 Acetaminophen 650 mg Q6H PRN RC; Start 10/12/24 at 21:00; Stop 11/11/24 at 20:59 Enoxaparin Sodium 40 mg DAILY SQ Last administered on 10/14/24at 10:42; Start 10/13/24 at 09:00; Stop 11/12/24 at 08:59 Hydralazine HCl 10 mg Q6H PRN IV; Start 10/12/24 at 21:00; Stop 11/11/24 at 20:59 Morphine Sulfate 4 mg Q4H PRN IV Last administered on 10/14/24at 01:21; Start 10/12/24 at 21:00; Stop 10/19/24 at 20:59 Ondansetron HCl 4 mg Q6H PRN IV; Start 10/12/24 at 21:00; Stop 11/11/24 at 20:59 Famotidine 20 mg DAILY IV Last administered on 10/14/24at 08:10; Start 10/13/24 at 09:00; Stop 11/12/24 at 08:59 FLOR MCCORMICK Jr. Oct 14, 2024 12:00
--- NOTE | 2024-10-14 14:32 | PN ---
[facility] PROGRESS NOTE Date of Service: Oct 14, 2024 Time of Service: 14:21 SUBJECTIVE: 10/13/2024 Patient is a 39-year-old male who is seen at bedside. Patient was previously admitted for acute sigmoid diverticulitis. Patient is currently afebrile normotensive saturating well on room air. Patient denies pain at the moments. He was seen by General surgery. General surgery states patient is currently not a candidate for surgery but continue NPO in antibiotic treatment. They will reassess tomorrow morning. Patient had colonoscopy March of 2024. Remarkable labs: White count stable hemoglobin hematocrit stable platelets unremarkable electrolytes unremarkable Patient will remain NPO and on Zosyn. He remains on GI prophylaxis famotidine 20 mg IV q.d. and DVT prophylaxis Lovenox 40 mg subQ q.d. will order IBD labs and follow up in the morning. 10/14/2024 - patient is seen at bedside afebrile normotensive saturating well on room air. Tinel's significant overnight events, patient has experienced left lower pain which was relieved after defecation. Patient was also given a dose of morphine. This morning patient is sites pain has resolved. Remarkable labs white count continues to trend down, hemoglobin 12.8, platelets 398, ESR 26, CRP 85.6, p-ANCA and ASCA lab results still pending. We will send results to patient's PCP when available. Per General surgery patients can advanced diet and can be possibly discharged tomorrow if well tolerated. At discharge patient should be placed on antibiotics. Patient has been advised to follow up with General surgery in 6 weeks for colonoscopy and possible surgical evaluation due to recurrent episodes of diverticulitis. REVIEW OF SYSTEMS CONSTITUTIONAL: Denies fevers, chills, or night sweats. No unintentional weight loss reported. NEUROLOGICAL: Denies headache, amaurosis fugax, motor weakness, sensory deficit, vertigo/spinning sensation, gait abnormalities, or tremors. ENT: No hearing loss, otalgia, otorrhea, rhinitis, rhinorrhea, hoarseness, or sore throat. CARDIOVASCULAR: Denies any exertional angina, dyspnea on exertion, orthopnea, paroxysmal nocturnal dyspnea, palpitations, life-threatening arrhythmias, c laudication. PULMONARY: Denies any shortness of breath, cough, phlegm/sputum, hemoptysis, pleuritic chest pain. SLEEP: Denies morning headaches, daytime somnolence or napping. Denies difficulty falling asleep, staying asleep, waking from sleep. Denies knowledge of snoring. GASTROINTESTINAL: Denies any type of dysphagia to either liquids or solids. Denies nausea, vomiting, pyrosis, early satiety, abdominal pain, diarrhea, cons tipation, or changes in stool consistency or caliber. Denies coffee-ground emesis, hematemesis, hematochezia, or melanotic stools. GENITOURINARY: Denies frequency, urgency, nocturia, hematuria or incontinence (Storage/Irritative symptoms.) Low urinary stream, straining to void, urinary intermittency or hesitancy, splitting of the voiding stream, terminal dribbling. ENDOCRINOLOGIC: Denies polyuria, polydipsia, polyphagia or heat/cold intolerances. HEMATOLOGIC: Denies thrombophilia/previous clots, or coagulopathy/bleeding disorders. ONCOLOGIC: Denies personal history of malignancy. DERMATOLOGIC: Denies rashes or pruritus. PSYCHIATRIC: Denies any suicidal or homicidal ideation. Denies hallucinations. PHYSICAL EXAM GENERAL APPEARANCE: The patient is awake, alert, and oriented, in no acute cardiopulmonary distress. NEUROLOGICAL: Cranial nerves II-XII grossly intact. Motor is 5/5 in bilateral upper and lower extremities proximal to distal. No sensory deficits. HEENT: Face is symmetric. Pupils are equal and reactive. Extraocular movements are intact. NECK: Supple. No JVD. No thyromegaly. No submental, submandibular, pre- /postauricular, occipital or supraclavicular lymphadenopathy. CHEST: Normal chest expansion. No Telemetry. LUNGS: Absence of any rales, rhonchi or any wheezing. CARDIOVASCULAR: Regular. S1 and S2 normal. No appreciable rubs, murmurs or gallops. ABDOMEN: Soft, nontender, and nondistended. There is no rebound, voluntary guarding, or rigidity. : Deferred. No Sharpe. EXTREMITIES: Non-edematous and not cyanotic. No clubbing. Good capillary refill. SKIN: No skin breakdown. Vital Signs (last 8hr) Date Time Temp Pulse Resp B/P (MAP) Pulse Ox O2 Delivery O2 Flow Rate FiO2 10/14/24 11:33 98.1 79 18 102/52 95 Room Air 10/14/24 08:10 97 Room Air* 0 21 10/14/24 08:04 98.4 84 16 102/54 97 Room Air LABS: Laboratory: Test 10/14/24 04:44 10/13/24 06:23 10/12/24 21:08 10/12/24 19:00 Range/Units White Blood Count 11.5 H 4.8-10.8 K/uL Red Blood Count 4.46 L 4.50-6.20 MIL/uL Hemoglobin 12.8 L 14.0-18.0 g/dL Hematocrit 39.0 L 42-54 % Mean Corpuscular Volume 87.4 79-99 fL Mean Corpuscular Hemoglobin 28.7 27.0-33.0 pg Mean Corpuscular Hemoglobin Concent 32.8 32.0-36.0 g/dL Red Cell Distribution Width 12.1 11.0-15.5 % Platelet Count 398 130-400 K/uL Mean Platelet Volume 8.9 7.5-10.5 fL Immature Granulocyte % (Auto) 0.6 0-1 % Neutrophils (%) (Auto) 74.9 40.0-77.0 % Lymphocytes (%) (Auto) 15.0 L 21.0-51.0 % Monocytes (%) (Auto) 7.2 3.0-13.0 % Eosinophils (%) (Auto) 2.1 0.0-8.0 % Basophils (%) (Auto) 0.2 0.0-5.0 % Neutrophils # (Auto) 8.6 H 1.8-7.7 K/uL Lymphocytes # (Auto) 1.7 1.0-4.8 K/uL Monocytes # (Auto) 0.8 0.1-1.0 K/uL Eosinophils # (Auto) 0.24 0.00-0.70 K/uL Basophils # (Auto) 0.02 0.00-0.20 K/uL Absolute Immature Granulocyte (auto 0.07 0-1 K/uL Nucleated Red Blood Cells 0.0 0.0-0.19 % Erythrocyte Sedimentation Rate 26 H 0-15 MM/HR Sodium Level 141 136-145 mmol/L Potassium Level 3.6 3.5-5.1 mmol/L Chloride Level 103 101-111 mmol/L Carbon Dioxide Level 29 21-32 mmol/L Blood Urea Nitrogen 16 7-18 mg/dL Creatinine 1.0 0.5-1.3 mg/dL Glomerular Filtration Rate Calc 98 >90 mL/min Random Glucose 77 70-105 mg/dL Total Calcium 8.6 8.5-10.1 mg/dL Total Bilirubin 0.9 0.2-1.0 mg/dL Aspartate Amino Transf (AST/SGOT) 15 10-37 U/L Alanine Aminotransferase (ALT/SGPT) 20 12-78 U/L Alkaline Phosphatase 67 50-136 U/L C-Reactive Protein, Quantitative 85.60 H 0.5-3.0 mg/L Total Protein 6.3 6.0-8.3 g/dL Albumin 2.9 L 3.5-5.0 g/dL Prothrombin Time 11.7 H 9.6-11.6 SEC Prothromb Time International Ratio 1.09 0.85-1.15 Activated Partial Thromboplast Time 30.0 26.3-35.5 SEC Phosphorus Level 3.5 2.5-4.9 mg/dL Magnesium Level 2.00 1.80-2.40 mg/dL Lactic Acid Level 1.0 0.8-2.5 mmol/L Procalcitonin < 0.05 L 0.05-0.5 ng/mL Urine Color YELLOW YELLOW Urine Appearance CLEAR CLEAR Urine pH 5.5 5.0-8.0 Urine Specific [place] 1.022 1.001-1.031 Urine Protein 10 H NEGATIVE mg/dL Urine Glucose (UA) NEGATIVE NEGATIVE mg/dL Urine Ketones 5 H NEGATIVE mg/dL Urine Occult Blood NEGATIVE NEGATIVE Urine Nitrate NEGATIVE NEGATIVE Urine Bilirubin NEGATIVE NEGATIVE mg/dL Urine Urobilinogen 0.2 0.2-1.0 mg/dL Urine Leukocyte Esterase NEGATIVE NEGATIVE Sarah/uL Urine RBC 0-1 0-1 /HPF Urine WBC 0-1 0-1 /HPF Urine Squamous Epithelial Cells RARE 0-2 /HPF Urine Bacteria None None Seen /HPF Test 10/12/24 18:40 Range/Units Lipase 49 16-77 U/L Current Medications Medications (Trade) Dose Ordered Sig/Tai Route PRN Reason Start Time Stop Time Status Last Admin Dose Admin Acetaminophen (TYLenol 650MG SUPPOSITORY) 650 mg Q6H PRN RC MILD PAIN (1-3) 10/12/24 21:00 11/11/24 20:59 Enoxaparin Sodium (Lovenox) 40 mg DAILY SQ 10/13/24 09:00 11/12/24 08:59 10/14/24 10:42 40 MG Famotidine (Pepcid 20mg Vial) 20 mg DAILY IV 10/13/24 09:00 11/12/24 08:59 10/14/24 08:10 20 MG Hydralazine HCl (APRESOLine 20MG INJ) 10 mg Q6H PRN IV For:SBP above 160;DBP above 90 10/12/24 21:00 11/11/24 20:59 Lactated Ringer's 1,000 ml @ 100 mls/hr Q10H IV 10/12/24 21:00 11/11/24 20:59 10/14/24 12:50 100 MLS/HR Morphine Sulfate (morPHINE 4MG SYG) 4 mg Q4H PRN IV SEVERE PAIN (7-10) 10/12/24 21:00 10/19/24 20:59 10/14/24 01:21 4 MG Ondansetron HCl (zoFRAN 4MG INJ) 4 mg Q6H PRN IV NAUSEA/VOMITING 10/12/24 21:00 11/11/24 20:59 Piperacillin Sod/ Tazobactam Sod (Zosyn 3.375gm+NS 50ml) 3.375 gm ONCE IVPB 10/12/24 18:30 10/12/24 20:44 DC 10/12/24 18:52 3.375 GM Piperacillin Sod/ Tazobactam Sod (Zosyn 3.375gm+NS 50ml) 3.375 gm Q8H IV 10/13/24 02:30 10/23/24 02:29 10/14/24 10:39 3.375 GM DIAGNOSTICS / RADIOLOGY: ASSESSMENT: Acute sigmoid diverticulitis, POA Leukocytosis, POA PLAN: patient to medical-surgical floor as inpatient status. Empiric antibiotic therapy with Zosyn check labs in the AM Advanced diet as tolerated Lactated Ringer's at 100 mL/HR As needed analgesia with morphine Follow recommendations per General surgery Service GI prophylaxis, famotidine 20 mg IV once daily DVT prophylaxis, Lovenox 40 mg subcutaneously once daily. ATTESTATION BY PHYSICIAN I have seen and examined the patient. I reviewed the documentation, medical decision making, and treatment plan as noted by the resident provider above. I agree with the findings and plan of care. Larry Kaufman MD, GERARDO MD Oct 14, 2024 14:32
[2024-10-15] VITALS: BP 103/62; PULSE 63; RESP 18; TEMP 97.6
[2024-10-15 04:00] VITALS: BP 110/68; PULSE 66; RESP 19; TEMP 97.9
[2024-10-15 05:27] LABS: BASOPHILS # (AUTO) 0.01 K/uL (0.00-0.20); BASOPHILS % (AUTO) 0.1 % (0.0-5.0); EOSINOPHILS # (AUTO) 0.31 K/uL (0.00-0.70); EOSINOPHILS % (AUTO) 3.1 % (0.0-8.0); IMMATURE GRANULOCYTE ABSOLUTE 0.04 K/uL (0-1); LYMPHOCYTES # (AUTO) 1.8 K/uL (1.0-4.8); LYMPHOCYTES % (AUTO) 18.2 % (21.0-51.0); MEAN CORPUSCULAR HEMOGLOBIN 28.9 pg (27.0-33.0); MEAN CORPUSCULAR HGB CONC 33.1 g/dL (32.0-36.0); MEAN CORPUSCULAR VOLUME 87.2 fL (79-99); MONOCYTES # (AUTO) 0.7 K/uL (0.1-1.0); MONOCYTES % (AUTO) 7.3 % (3.0-13.0); NEUTROPHILS # (AUTO) 7.2 K/uL (1.8-7.7); NEUTROPHILS % (AUTO) 70.9 % (40.0-77.0); PLATELET COUNT (AUTO) 416 K/uL (130-400); RED BLOOD CELL COUNT(AUTO) 4.47 MIL/uL (4.50-6.20); RED CELL DISTRIBUTION WIDTH 12.2 % (11.0-15.5); WHITE BLOOD COUNT (AUTO) 10.1 K/uL (4.8-10.8)
[2024-10-15 08:05] VITALS: BP 107/59; PULSE 65; RESP 18; TEMP 97.7
[2024-10-15 08:11] VITALS: O2SAT 97
[2024-10-15 11:52] VITALS: BP 99/58; PULSE 76; RESP 18; TEMP 98.1
[2024-10-15] MEDS ORDERED: LEVO250T75 PO (13:25)
--- NOTE | 2024-10-15 13:42 | NUR ---
DISCHARGE PIV DC'D DISCHARGE INSTRUCTIONS PROVIDED PRESCRIPTION HANDED TO THE PATIENT PATIENT IS AWARE THAT AN ANTIBIOTIC EPISODE WAS SENT TO THE HEB ALL QUESTIONS ANSWERED PRIOR TO DISCHARGE
--- NOTE | 2024-10-15 13:47 | DS ---
Discharge Summary Hospital Course Summary: DATE OF ADMISSION:[10/12/2024] DATE OF DISCHARGE:[10/15/2024] DISPOSITION:[Home] CONDITION:[Medically stable] CONSULTANTS:[Surgeon] FOLLOW UP APPOINTMENTS:[PCP 2 to 3 days. 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 Patient was previously admitted for acute sigmoid diverticulitis. Patient is currently afebrile normotensive saturating well on room air. Patient denies pain at the moments. He was seen by General surgery. General surgery states patient is currently not a candidate for surgery but continue NPO in antibiotic treatment. They will reassess tomorrow morning. Patient had colonoscopy March of 2024. Remarkable labs: White count stable hemoglobin hematocrit stable platelets unremarkable electrolytes unremarkable Patient will remain NPO and on Zosyn. He remains on GI prophylaxis famotidine 20 mg IV q.d. and DVT prophylaxis Lovenox 40 mg subQ q.d. will order IBD labs and follow up in the morning. 10/14/2024 - patient is seen at bedside afebrile normotensive saturating well on room air. Tinel's significant overnight events, patient has experienced left lower pain which was relieved after defecation. Patient was also given a dose of morphine. This morning patient is sites pain has resolved. Remarkable labs white count continues to trend down, hemoglobin 12.8, platelets 398, ESR 26, CRP 85.6, p-ANCA and ASCA lab results still pending. We will send results to patient's PCP when available. Per General surgery patients can advanced diet and can be possibly discharged tomorrow if well tolerated. At discharge patient should be placed on antibiotics. Patient has been advised to follow up with General surgery in 6 weeks for colonoscopy and possible surgical evaluation due to recurrent episodes of diverticulitis. 10/15 patient was seen by nurse practitioner and physician during rounding comfortably lying in the bed. Patient was cleared by surgeon to be discharged home. Follow up in six weeks. Patient was placed on regular diet and that is tolerating. Denies any nausea, vomiting or any abdominal discomfort. Patient was advised to follow up with PCP in 2 to 3 days. Procedure(s): REVIEW OF SYSTEMS CONSTITUTIONAL: Denies fevers, chills, or night sweats. No unintentional weight loss reported. NEUROLOGICAL: Denies headache, amaurosis fugax, motor weakness, sensory deficit, vertigo/spinning sensation, gait abnormalities, or tremors. ENT: No hearing loss, otalgia, otorrhea, rhinitis, rhinorrhea, hoarseness, or sore throat. CARDIOVASCULAR: Denies any exertional angina, dyspnea on exertion, orthopnea, paroxysmal nocturnal dyspnea, palpitations, life-threatening arrhythmias, claudication. PULMONARY: Denies any shortness of breath, cough, phlegm/sputum, hemoptysis, pleuritic chest pain. SLEEP: Denies morning headaches, daytime somnolence or napping. Denies difficulty falling asleep, staying asleep, waking from sleep. Denies knowledge of snoring. GASTROINTESTINAL: Denies any type of dysphagia to either liquids or solids. Denies nausea, vomiting, pyrosis, early satiety, abdominal pain, diarrhea, constipation, or changes in stool consistency or caliber. Denies coffee-ground emesis, hematemesis, hematochezia, or melanotic stools. GENITOURINARY: Denies frequency, urgency, nocturia, hematuria or incontinence (Storage/Irritative symptoms.) Low urinary stream, straining to void, urinary intermittency or hesitancy, splitting of the voiding stream, terminal dribbling. ENDOCRINOLOGIC: Denies polyuria, polydipsia, polyphagia or heat/cold intolerances. HEMATOLOGIC: Denies thrombophilia/previous clots, or coagulopathy/bleeding disorders. ONCOLOGIC: Denies personal history of malignancy. DERMATOLOGIC: Denies rashes or pruritus. PSYCHIATRIC: Denies any suicidal or homicidal ideation. Denies hallucinations. PHYSICAL EXAM GENERAL APPEARANCE: The patient is awake, alert, and oriented, in no acute cardiopulmonary distress. NEUROLOGICAL: Cranial nerves II-XII grossly intact. Motor is 5/5 in bilateral upper and lower extremities proximal to distal. No sensory deficits. HEENT: Face is symmetric. Pupils are equal and reactive. Extraocular movements are intact. NECK: Supple. No JVD. No thyromegaly. No submental, submandibular, pre- /postauricular, occipital or supraclavicular lymphadenopathy. CHEST: Normal chest expansion. No Telemetry. LUNGS: Absence of any rales, rhonchi or any wheezing. CARDIOVASCULAR: Regular. S1 and S2 normal. No appreciable rubs, murmurs or gallops. ABDOMEN: Soft, nontender, and nondistended. There is no rebound, voluntary guarding, or rigidity. : Deferred. No Sharpe. EXTREMITIES: Non-edematous and not cyanotic. No clubbing. Good capillary refill. SKIN: No skin breakdown. Assessment/Plan: ASSESSMENT: Acute sigmoid diverticulitis, POA Leukocytosis, POA Home Medications: Active Scripts Levofloxacin (Levofloxacin) 250 Mg Tablet, 1 TAB PO DAILY for 7 Days, #7 TAB 0 Refills Prov:AMEYA RAMSEY INSURANCE FOLLOW UP SPECIALIST 10/15/24 Discontinued Scripts Oxycodone HCl/Acetaminophen (Percocet 5-325 mg Tablet) 5 Mg-325 Mg Tablet, 1 TAB PO QID PRN for PAIN for 5 Days, #20 TAB 0 Refills Prov:VALENTINE HERNANDEZ DO 09/28/24 Amoxicillin/Potassium Clav (Amox Tr-K Clv 875-125 mg Tab) 875 Mg-125 Mg Tablet, 1 TAB PO BID for 10 Days, #20 TAB 0 Refills Prov:VALENTINE HERNANDEZ DO 09/28/24 Time spent arranging discharge: 31-60 minutes ATTESTATION BY PHYSICIAN I have seen and examined the patient. I reviewed the documentation, medical decision making, and treatment plan as noted by the mid-level provider above. I agree with the findings and plan of care. Kathie Kaufman MD, KATARZYNA B INSURANCE FOLLOW UP SPECIALIST Oct 15, 2024 13:47
== END 2024-10-15 14:35 | disposition home or self-care (01) | DRG 392 ==
LOC: EDH 18:25 → EDHIP 20:35 → 3BH 10-13 06:07
PROVIDERS: ADMIT Internal Medicine; ATTEND Internal Medicine
DX: K57.32 Diverticulitis of large intestine without perforation or abscess without bleeding (principal); F17.290 Nicotine dependence, other tobacco product, uncomplicated; D72.829 Elevated white blood cell count, unspecified; Z79.899 Other long term (current) drug therapy
CPT/HCPCS: 36415; 74177; 80048; 80053; 81001; 83605; 83690; 83735; 84100; 84145; 85025; 85610; 85651; 85730; 86140; 86255; 86671; 86771; 87040; 96365; 96375; 96376; 99285; G0378; J1650; J2270; J2405; J2543; J3490; Q9967